=== PATIENT | male | born 1985 | race Native Hawaiian/Other Pacific Islander ===

== ENCOUNTER 2018-01-17 10:03 | Emergency (ER) | payer OTHER ==
--- NOTE | 2018-01-17 10:34 | ED PDOC ---
Lower Extremity Pain/Injury Time Seen by Provider: 01/17/18 10:32 Chief Complaint (Nursing): Lower Extremity Problem/Injury Chief Complaint (Provider): foot pain left History Per: Patient (32 y/o male here with left foot pain noted after running after bus to get his wallet. States pain worse with bearing weight on foot. ) Past Medical History Reviewed: Historical Data, Nursing Documentation, Vital Signs Vital Signs: Last Vital Signs Temp Pulse Resp BP Pulse Ox 98 01/17/18 10:08 - Family History Family History: States: No Known Family Hx - Home Medications Home Medications: Ambulatory Orders Medication Instructions Recorded Ibuprofen [Motrin] 600 mg PO Q8 PRN #21 tab 01/17/18 - Allergies Allergies/Adverse Reactions: Allergies Allergy/AdvReac Type Severity Reaction Status Date / Time No Known Allergies Allergy Verified 01/17/18 10:08 Review of Systems ROS Statement: Except As Marked, All Systems Reviewed And Found Negative Musculoskeletal: Positive for: Foot Pain Physical Exam - Reviewed Nursing Documentation Reviewed: Yes Vital Signs Reviewed: Yes - Physical Exam Appears: Positive for: Well, Non-toxic, No Acute Distress Head Exam: Positive for: ATRAUMATIC, NORMAL INSPECTION, NORMOCEPHALIC Skin: Positive for: Normal Color, Warm, DRY Eye Exam: Positive for: EOMI, Normal appearance, PERRL ENT: Positive for: Normal ENT Inspection Neck: Positive for: Normal, Painless ROM Cardiovascular/Chest: Positive for: Regular Rate, Rhythm Respiratory: Positive for: CNT, Normal Breath Sounds Gastrointestinal/Abdominal: Positive for: Normal Exam, Soft Back: Positive for: Normal Inspection Extremity: Positive for: Normal ROM, Swelling (mild swelling medial aspect of left foot.) Neurologic/Psych: Positive for: Alert, Oriented - ECG O2 Sat by Pulse Oximetry: 98 - Progress ED Course And Treament: xry of foot: neg for fx xry of ankle: neg for fx Given crutch instructions and hard shoe. Disposition - Clinical Impression Clinical Impression: Foot pain, left - Patient ED Disposition Is Patient to be Admitted: No - Disposition Referrals: [facility] [Outside] Tommy Stone MD [Staff Provider] - Disposition: Routine/Home Disposition Time: 11:01 Condition: FAIR Prescriptions: Ibuprofen [Motrin] 600 mg PO Q8 PRN #21 tab PRN Reason: Pain, Moderate (4-7) Instructions: Muscle and Bone Pain (DC) Forms: [facility] ED School/Work Excuse
--- NOTE | 2018-01-17 11:04 | RAD ---
Date of service: 01/17/2018 PROCEDURE: Left Ankle Radiographs. HISTORY: ankle injury COMPARISON: None FINDINGS: BONES: Bone alignment and mineralization are normal. There is no acute displaced fracture or bone destruction.There is a dorsal calcaneal enthesophyte. JOINTS: Normal. No osteoarthritis. Ankle mortise maintained. Talar dome intact SOFT TISSUES: Normal. OTHER FINDINGS: None. IMPRESSION: No acute fracture or dislocation.
--- NOTE | 2018-01-17 11:06 | RAD ---
Date of service: 01/17/2018 PROCEDURE: Left Foot Radiographs. HISTORY: Injury COMPARISON: None. FINDINGS: BONES: Bone alignment and mineralization are normal. There is no acute displaced fracture or bone destruction. JOINTS: Normal. SOFT TISSUES: Normal. OTHER FINDINGS: None. IMPRESSION: No acute fracture or dislocation.
[2018-01-17 11:12] VITALS: RESP 18; TEMP 97.8
[2018-01-17 12:31] VITALS: BP 134/72; PULSE 74; O2SAT 100
== END 2018-01-17 11:40 | disposition home or self-care (01) ==
LOC: H.ER 10:03
DX: M79.672 Pain in left foot (principal)